=== PATIENT | male | born 1950 | race Caucasian/White ===

== ENCOUNTER 2016-12-18 13:10 | Inpatient (IN) | payer OTHER ==
[~2016-12-18] VITALS: Ht 177.8 cm; Wt 85.5 kg
[2016-12-18 14:28] LABS: HEMATOCRIT 46.7 % (38.0-50.0); MCH 32.5 PG (29.0-34.0); MCHC 34.3 G/DL (30.0-36.0); MCV 94.9 FL (86-99); MEAN PLAT.VOLUME 9.9 uM^3 (9.0-12.4); PLATELET COUNT 221 K/uL (156-360); RBC DIS.WIDTH-CV 13.4 % (11.8-14.6); RBC DIS.WIDTH-SD 47.4 % (39-53); RED BLOOD COUNT 4.92 M/uL (4.00-5.50); WHITE BLOOD COUNT 11.9 K/uL (4.1-10.2)
[2016-12-18 14:39] LABS: CHLORIDE 103 mEq/L (99-109); POTASSIUM 4.5 mEq/L (3.7-5.4); SODIUM 135 mEq/L (136-147)
[2016-12-18 14:40] LABS: GLUCOSE 122 mg/dL (70-99)
[2016-12-18 14:42] LABS: ANION GAP 10 MEQ/L (2-14)
[2016-12-18 14:44] LABS: GFR ESTIMATE (CALCULATED) > 59 mL/min/
[2016-12-18 14:45] LABS: UREA NITROGEN (BUN) 12 mg/dL (9-23)
[2016-12-18 14:53] LABS: TROP-I INTERPRETATION NEGATIVE
[2016-12-18 15:01] LABS: PROTHROMBIN TIME 10.6 SEC (10.2-12.9)
[2016-12-18 19:30] VITALS: BP 162/86
[2016-12-18 20:35] LABS: EOSINOPHIL COUNT 0.1 K/uL (0-0.3); HEMATOCRIT 44.7 % (38.0-50.0); IMMATURE GRANULOCYTE (%) 0.4 % (0.0-0.7); INSTRUMENT ABS NEUTROPHIL CT 6.1 K/uL; LYMPHOCYTE COUNT 2.5 K/uL (1.0-2.8); MCH 32.7 PG (29.0-34.0); MCHC 34.7 G/DL (30.0-36.0); MCV 94.3 FL (86-99); MEAN PLAT.VOLUME 10.1 uM^3 (9.0-12.4); MONOCYTE (%) 8.5 % (3-12); MONOCYTE COUNT 0.8 K/uL (0-0.8); NEUTROPHIL (%) 63.6 % (45-76); NEUTROPHIL COUNT 6.1 K/uL (1.8-6.4); PLATELET COUNT 228 K/uL (156-360); RBC DIS.WIDTH-CV 13.5 % (11.8-14.6); RBC DIS.WIDTH-SD 47.2 % (39-53); RED BLOOD COUNT 4.74 M/uL (4.00-5.50); WHITE BLOOD COUNT 9.6 K/uL (4.1-10.2)
[2016-12-18 21:02] VITALS: BP 135/82
[2016-12-18 21:04] VITALS: BP 146/92
[2016-12-19 00:26] VITALS: BP 128/78
[2016-12-19 01:29] LABS: TOTAL CK 1047 IU/L (1-294)
[2016-12-19 01:32] LABS: CREATINE KINASE 1047 IU/L (1-294)
[2016-12-19 01:36] LABS: CK-MB 194.9 ng/mL (0.0-4.9); TROP-I INTERPRETATION POSITIVE
[2016-12-19 01:37] LABS: TROPONIN-I 48.82 ng/mL (0.0-0.30)
[2016-12-19 03:49] VITALS: BP 144/84
[2016-12-19 05:26] LABS: BASOPHIL COUNT 0.1 K/uL (0-0.1); EOSINOPHIL (%) 3.3 % (0-5); EOSINOPHIL COUNT 0.3 K/uL (0-0.3); IMMATURE GRANULOCYTE (%) 0.5 % (0.0-0.7); INSTRUMENT ABS NEUTROPHIL CT 5.3 K/uL; MCH 32.3 PG (29.0-34.0); MCV 94.9 FL (86-99); MEAN PLAT.VOLUME 10.1 uM^3 (9.0-12.4); MONOCYTE (%) 10.4 % (3-12); MONOCYTE COUNT 0.9 K/uL (0-0.8); NEUTROPHIL (%) 61.8 % (45-76); NEUTROPHIL COUNT 5.3 K/uL (1.8-6.4); PLATELET COUNT 230 K/uL (156-360); RBC DIS.WIDTH-CV 13.7 % (11.8-14.6); RBC DIS.WIDTH-SD 47.6 % (39-53); RED BLOOD COUNT 4.74 M/uL (4.00-5.50); WHITE BLOOD COUNT 8.5 K/uL (4.1-10.2)
[2016-12-19 05:45] LABS: ANION GAP 8 MEQ/L (2-14); CHLORIDE 109 MEQ/L (99-109); GFR ESTIMATE (CALCULATED) > 59 mL/min/; GLUCOSE 96 mg/dL (70-99); HDL CHOLESTEROL 22 MG/DL (Desirable>=40); LDL CHOLESTEROL 78 mg/dL (Desirable<100); NON-HDL CHOLESTEROL 108 mg/dL (Desirable<160); POTASSIUM 4.2 MEQ/L (3.7-5.4); SAMPLE HEMOLYSIS CHECK 0; SAMPLE ICTERIC CHECK 0; SAMPLE LIPEMIA CHECK 0; SODIUM 138 MEQ/L (136-147); TOTAL CHOLESTEROL 130 mg/dL (Desirable<200); TRIGLYCERIDES 148 MG/DL (Normal: <150); UREA NITROGEN (BUN) 11 mg/dL (9-23)
[2016-12-19 05:51] LABS: TROP-I INTERPRETATION POSITIVE; TROPONIN-I 33.05 ng/mL (0.0-0.30)
[2016-12-19 06:29] LABS: CREATINE KINASE 848 IU/L (1-294); TOTAL CK 848 IU/L (1-294)
[2016-12-19 06:53] LABS: CK-MB 193.6 ng/mL (0.0-4.9)
[2016-12-19 07:34] LABS: Estimated Average Glucose 114 mg/dL (70-123); HEMOGLOBIN A1c (GLYCOHEMOGLOB) 5.6 % HGB (Below 5.7)
[2016-12-19 07:42] VITALS: BP 130/70
[2016-12-19] MEDS ORDERED: CLARITIN,ALAVAR10 MG PO (13:51)
[2016-12-19 17:49] VITALS: BP 144/68
[2016-12-19 19:28] VITALS: BP 132/83
[2016-12-20 00:37] VITALS: BP 102/67
[2016-12-20 05:12] VITALS: BP 108/64
[2016-12-20 08:24] VITALS: BP 109/61
[2016-12-20 11:19] VITALS: BP 126/83
[2016-12-20] MEDS ORDERED: LISINOPRIL5 MG PO (11:26)
[2016-12-20] MEDS ORDERED: NITROSTAT0.4 MG SL (11:26)
[2016-12-20] MEDS ORDERED: LOPRESSOR25 MG PO (11:26)
[2016-12-20] MEDS ORDERED: EFFIENT10 MG PO (11:26)
[2016-12-20] MEDS ORDERED: ATORVASTATIN CA80 MG PO (11:26)
[2016-12-20] MEDS ORDERED: NICOTINE PATCH1 EAC2 TD (11:26)
[2016-12-20] MEDS ORDERED: ASPIRIN EC325 MG PO (11:26)
== END 2016-12-20 13:34 | disposition home or self-care (01) | DRG 249 ==
LOC: EME 13:10 → CATH 15:24 → ENRESERV 16:56 → 4EAST 16:57 → 2SOUTH 16:57 → ENRESERV 17:22 → 4EAST 19:07 → ENPENDDIS 12-20 → 4EAST 12-20 10:11
PROVIDERS: Emergency Medicine; Internal Medicine Cardiovascular Disease
DX: I21.19 ST elevation (STEMI) myocardial infarction involving other coronary artery of inferior wall (principal); I10 Essential (primary) hypertension; F17.200 Nicotine dependence, unspecified, uncomplicated; J44.9 Chronic obstructive pulmonary disease, unspecified; I47.2 Ventricular tachycardia; I25.10 Atherosclerotic heart disease of native coronary artery without angina pectoris
CPT/HCPCS: 71020; 80048; 80061; 82550; 82550 91; 82553; 83036; 84484; 85025; 85027; 85347; 85610; 85730; 93005; 99281; 99285; C1725; C1769; C1874; C1887; G0378; J0153; J0461; J1644; J2250; J2405; J3010; J3246; J7030